=== PATIENT | male | born 1945 | race Caucasian/White ===

== ENCOUNTER 2017-10-14 08:19 | Emergency (ER) | payer OTHER ==
[~2017-10-14] VITALS: Ht 170.2 cm; Wt 69.9 kg
[2017-10-14] MEDS ORDERED: ENALAPRIL MALEA10 MG (08:33)
[2017-10-14] MEDS ORDERED: BENADRYL25 MG PO (09:38)
[2017-10-14] MEDS ORDERED: ZYRTEC10 M3 PO (09:38)
== END 2017-10-14 10:00 | disposition home or self-care (01) ==
LOC: ER 08:19
DX: B02.9 Zoster without complications (principal); R21 Rash and other nonspecific skin eruption

== ENCOUNTER 2018-01-06 15:44 | Outpatient (CLI) | payer OTHER ==
[~2018-01-06 15:44] MED LIST: BENADRYL25 MG PO; ENALAPRIL MALEA10 MG; ZYRTEC10 M3 PO
== END 2018-01-06 16:25 | disposition home or self-care (01) ==
LOC: RAD 501 15:44
DX: M25.551 Pain in right hip (principal)